=== PATIENT | female | born 1990 | race Caucasian/White ===

== ENCOUNTER 2018-03-26 00:40 | Emergency (ER) | payer OTHER ==
[2018-03-26 01:11] VITALS: BP 125/80; PULSE 72; TEMP 97.8; BMI 22.0
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
[2018-03-26] MEDS ORDERED: ACETAMINOPHEN 500 MG TABLET (FP) PO ONE (01:44)
[2018-03-26] MEDS ORDERED: ACETAMINOPHEN 325 MG TABLET (FP) PO ONE (01:53)
== END 2018-03-26 01:56 | disposition home or self-care (01) ==
LOC: JER 00:40
DX: R51 Headache (principal); V43.62XA Car passenger injured in collision with other type car in traffic accident, initial encounter; Y92.488 Other paved roadways as the place of occurrence of the external cause; Y93.89 Activity, other specified; Y99.8 Other external cause status; Z98.1 Arthrodesis status
CPT/HCPCS: 99281-25